=== PATIENT | male | born 1995 | race Caucasian/White ===

== ENCOUNTER 2016-11-25 23:08 | Emergency (ER) | payer MEDICAID ==
[2016-11-25 23:25] VITALS: BP 137/98; PULSE 76; RESP 18; TEMP 97.8; O2SAT 100; BMI 34.2
--- NOTE | 2016-11-26 00:30 | ED PDOC ---
Arrival/HPI - General Chief Complaint: Allergic Reaction Time Seen by Provider: 11/25/16 23:58 Historian: Patient - History of Present Illness Narrative History of Present Illness (Text): 11/26/16 01:16 20yr old male presents today with rash intermittently x 2 weeks. pt denies new soaps lotions or detergents or perfumes/colognes. Patient states he's been getting hives to the face neck and arms bilaterally. Patient denies chest pain or shortness of breath. Denies difficulty breathing or swallowing. Patient states he thinks that the symptoms worsened after he eats things with salt. Patient states he has never had anything like this before. He denies spread to the palms or soles. He denies any rash on the lower extremities. Patient states occasionally he gets a rash along the groin and waist line. No medications have been taken at home. No other complaints Past Medical History - Provider Review Nursing Documentation Reviewed: Yes - Travel History Have you recently traveled outside [place] w/in the past 3 mons?: No - Psychiatric Hx Substance Use: No Family/Social History - Physician Review Nursing Documentation Reviewed: Yes Family/Social History: Unknown Family HX Smoking Status: Never Smoked Hx Alcohol Use: No Hx Substance Use: No Allergies/Home Meds Allergies/Adverse Reactions: Allergies No Known Allergies Allergy (Verified 11/25/16 23:24) Review of Systems - Review of Systems Constitutional: absent: Fatigue, Fevers ENT: absent: Sore Throat, Sinus Congestion Respiratory: absent: SOB, Cough Cardiovascular: absent: Chest Pain, Palpitations Gastrointestinal: absent: Abdominal Pain, Nausea, Vomiting Genitourinary Male: absent: Dysuria, Frequency, Hematuria Musculoskeletal: absent: Arthralgias Skin: Rash, Pruritis Neurological: absent: Headache, Dizziness Psychiatric: absent: Anxiety, Depression Physical Exam Vital Signs Reviewed: Yes Vital Signs Temp Pulse Resp BP Pulse Ox 11/25/16 23:24 97.8 F 76 18 137/98 H 100 Temperature: Afebrile Blood Pressure: Hypertensive Pulse: Regular Respiratory Rate: Normal Appearance: Positive for: Well-Appearing, Non-Toxic, Comfortable Pain Distress: None Mental Status: Positive for: Alert and Oriented X 3 - Systems Exam Head: Present: Atraumatic Mouth: Present: Moist Mucous Membranes Neck: Present: Normal Range of Motion Respiratory/Chest: Present: Clear to Auscultation, Good Air Exchange. No: Respiratory Distress, Accessory Muscle Use Cardiovascular: Present: Regular Rate and Rhythm, Normal S1, S2. No: Murmurs Upper Extremity: Present: Normal ROM Lower Extremity: Present: Normal ROM Neurological: Present: GCS=15, Speech Normal Skin: Present: Warm, Dry, Rashes (multiple erythematous raised plaques to the face, neck and axilla. non tender. ) Psychiatric: Present: Alert, Oriented x 3 Medical Decision Making ED Course and Treatment: 11/26/16 01:19 Patient is nontoxic well-appearing in no distress with stable vital signs no angioedema. Lungs are clear to auscultation bilaterally there is no wheezing noted. The airway is patent Benadryl 25 mg po Prednisone PO Pepcid 20 mg PO Patient reassessment: feeling better. I advised taking Benadryl every 6 hours as needed for itch [as well as prednisone daily x4 days. Advised patient to follow up with primary care physician within the next 2 days and return if symptoms worsen persist or if new symptoms develop. advised f/u with grain combine driver. Patient verbalizes understanding of discharge instructions and need for immediate followup. Impression :rash Benadry every 6 hours as needed for rash/itch Prednisone once daily x4 days Pepcid one tablet daily Follow up with the primary care physician within the next 2 days Follow up with the grain combine driver within the next 2 days. Return if symptoms worsen persist or if new symptoms develop: Shortness of breath, feeling of throat closing, difficulty speaking or any other concerning symptoms develop - Medication Orders Current Medication Orders: Discontinued Medications Diphenhydramine HCl (Benadryl) 25 mg PO ONCE ONE Stop: 11/26/16 00:00 Last Admin: 11/26/16 00:08 Dose: 25 MG Famotidine (Pepcid) 20 mg PO STAT STA Stop: 11/26/16 00:00 Last Admin: 11/26/16 00:08 Dose: 20 MG Prednisone (Prednisone Tab) 40 mg PO STAT STA Stop: 11/26/16 00:00 Last Admin: 11/26/16 00:08 Dose: 40 MG Disposition/Present on Arrival - Present on Arrival Any Indicators Present on Arrival: No History of DVT/PE: No History of Uncontrolled Diabetes: No Urinary Catheter: No History of Decub. Ulcer: No History Surgical Site Infection Following: None - Disposition Have Diagnosis and Disposition been Completed?: Yes Diagnosis: Rash Disposition: HOME/ ROUTINE Disposition Time: 00:40 Patient Plan: Discharge Patient Problems: Current Active Problems Problem Status Diagnosed Rash Acute Condition: GOOD Discharge Instructions (ExitCare): Urticaria (ED) Additional Instructions: Benadry every 6 hours as needed for rash/itch Prednisone once daily x4 days] Pepcid one tablet daily Follow up with the primary care physician within the next 2 days Follow up with the grain combine driver within the next 2 days. Return if symptoms worsen persist or if new symptoms develop: Shortness of breath, feeling of throat closing, difficulty speaking or any other concerning symptoms develop Prescriptions: DiphenhydrAMINE [Benadryl] 25 mg PO Q6H #20 cap Famotidine [Pepcid] 20 mg PO DAILY #30 tab predniSONE [predniSONE Tab] 2 tab PO DAILY #8 tab Referrals: Shira Sanford MD [Staff Provider] - Follow up with primary Darryl Betts MD [Staff Provider] - Follow up with primary Forms: WORK NOTE
== END 2016-11-26 00:55 | disposition home or self-care (01) ==
LOC: ED 23:08
DX: R21 Rash and other nonspecific skin eruption (principal)

== ENCOUNTER 2016-12-02 20:58 | Emergency (ER) | payer MEDICAID ==
[2016-12-02 20:59] VITALS: BMI 34.2
[2016-12-02 21:28] VITALS: RESP 18; TEMP 98.2; O2SAT 98
--- NOTE | 2016-12-02 22:15 | ED PDOC ---
Arrival/HPI - General Chief Complaint: Allergic Reaction Time Seen by Provider: 12/02/16 21:08 Historian: Patient - History of Present Illness Narrative History of Present Illness (Text): 12/02/16 22:24 21-year-old male presents today with hives and face neck and underarms. Patient states this is the same rash that he had the last time he was here in the emergency room. Patient states he was taking Benadryl and Pepcid and prednisone with relief of the rash. Patient states the minute he completed the prednisone the rash returned. Patient denies fevers or chills. No chest pain or shortness of breath. Denies difficulty breathing or swallowing. Patient denies new soaps lotions or detergents colognes or medications. Patient states he tried to follow up with the pilates instructor but it didn't fit into his schedule. Past Medical History - Provider Review Nursing Documentation Reviewed: Yes - Travel History Have you recently traveled outside [place] w/in the past 3 mons?: No - Infectious Disease Hx of Infectious Diseases: None - Tetanus Immunization Tetanus Immunization: Unknown - Psychiatric Hx Substance Use: No - Anesthesia Hx Anesthesia: No Family/Social History - Physician Review Nursing Documentation Reviewed: Yes Family/Social History: Unknown Family HX Smoking Status: Never Smoked Hx Alcohol Use: No Hx Substance Use: No Allergies/Home Meds Allergies/Adverse Reactions: Allergies No Known Allergies Allergy (Verified 11/25/16 23:24) Review of Systems - Review of Systems Constitutional: absent: Fatigue, Fevers Eyes: absent: Eye Pain ENT: absent: Sore Throat, Sinus Congestion Respiratory: absent: SOB, Cough Cardiovascular: absent: Chest Pain, Palpitations Gastrointestinal: absent: Abdominal Pain, Nausea, Vomiting Genitourinary Male: absent: Dysuria Musculoskeletal: absent: Arthralgias Skin: Rash, Pruritis Neurological: absent: Headache Physical Exam Vital Signs Reviewed: Yes Vital Signs Temp Pulse Resp BP Pulse Ox 12/02/16 21:24 98.2 F 77 18 100/74 98 Temperature: Afebrile Blood Pressure: Normal Pulse: Regular Respiratory Rate: Normal Appearance: Positive for: Well-Appearing, Non-Toxic, Comfortable Pain Distress: None Mental Status: Positive for: Alert and Oriented X 3 - Systems Exam Head: Present: Atraumatic Mouth: Present: Moist Mucous Membranes Pharnyx: Present: Normal. No: ERYTHEMA, EXUDATE Nose (External): Present: Atraumatic Nose (Internal): Present: Normal Inspection Neck: Present: Normal Range of Motion, Trachea Midline. No: Lymphadenopathy Respiratory/Chest: Present: Clear to Auscultation, Good Air Exchange. No: Respiratory Distress, Accessory Muscle Use Cardiovascular: Present: Regular Rate and Rhythm, Normal S1, S2. No: Murmurs Skin: Present: Warm, Dry, Rashes (Multiple raised erythematous plaques noted to the chin, cheeks, neck, axilla bilaterally), Normal Color Psychiatric: Present: Alert, Oriented x 3 Medical Decision Making ED Course and Treatment: 12/02/16 22:27 Patient is nontoxic well-appearing in no distress with stable vital signs no angioedema. Lungs are clear to auscultation bilaterally there is no wheezing noted. The airway is patent Benadryl, prednisone by mouth Patient reassessment: After medications patient is feeling much better the lungs are clear to auscultation bilaterally the airway is patent the patient is speaking in full sentences. I advised taking Benadryl every 6 hours as needed for itch as well as prednisone daily x4 days. Advised patient to follow up with primary care physician within the next 2 days and return if symptoms worsen persist or if new symptoms develop. I told the patient that he needs to follow-up with a pilates instructor/public works commissioner to figure out what he is allergic to so he can prevent the hives from reoccurring. Patient verbalizes understanding of discharge instructions and need for immediate followup. Impression :Allergic reaction Benadryl every 6 hours as needed for itch Prednisone once daily x4 days Pepcid one tablet daily Follow up with the primary care physician tomorrow Follow-up with a pilates instructor within the next 2 days Return if symptoms worsen persist or if new symptoms develop: Shortness of breath, feeling of throat closing, difficulty speaking or any other concerning symptoms develop - Medication Orders Current Medication Orders: Discontinued Medications Diphenhydramine HCl (Benadryl) 50 mg PO ONCE ONE Stop: 12/02/16 21:57 Last Admin: 12/02/16 22:10 Dose: 50 MG Prednisone (Prednisone Tab) 60 mg PO STAT ONE Stop: 12/02/16 21:57 Last Admin: 12/02/16 22:10 Dose: 60 MG Disposition/Present on Arrival - Present on Arrival Any Indicators Present on Arrival: No History of DVT/PE: No History of Uncontrolled Diabetes: No Urinary Catheter: No History of Decub. Ulcer: No History Surgical Site Infection Following: None - Disposition Have Diagnosis and Disposition been Completed?: Yes Diagnosis: Allergic reaction Disposition: HOME/ ROUTINE Disposition Time: 22:13 Patient Plan: Discharge Condition: GOOD Discharge Instructions (ExitCare): General Allergic Reaction (ED) Additional Instructions: Benadryl every 6 hours as needed for itch Prednisone once daily x4 days Pepcid one tablet daily Follow up with the primary care physician tomorrow Follow-up with a pilates instructor within the next 2 days Return if symptoms worsen persist or if new symptoms develop: Shortness of breath, feeling of throat closing, difficulty speaking or any other concerning symptoms develop Prescriptions: DiphenhydrAMINE [Benadryl] 25 mg PO Q6H #20 cap Famotidine [Pepcid] 20 mg PO DAILY #30 tab predniSONE [predniSONE Tab] 3 tab PO DAILY #12 tab Referrals: Shira Sanford MD [Staff Provider] - Follow up with primary Darien Escobar MD [Family Provider] - Follow up with primary Forms: WORK NOTE
[2016-12-02 22:56] VITALS: BP 124/81; PULSE 75
== END 2016-12-02 22:57 | disposition home or self-care (01) ==
LOC: ED 20:58
DX: T78.40XA Allergy, unspecified, initial encounter (principal)